=== PATIENT | female | born 1935 | race American Indian/Alaskan Native ===

== ENCOUNTER 2018-08-18 10:40 | Emergency (ER) | payer MEDICARE ==
[2018-08-18 11:00] VITALS: BP 169/98
--- NOTE | 2018-08-18 11:00 | Emergency Department Report ---
Blank Doc - Documentation Documentation: 82 y o old female presents with knee and ankle pain s/p trip and fall x3 days ago while at home coming down stairs ambulate ok xr ACC evaluate
--- NOTE | 2018-08-18 12:19 | XRay Report ---
RIGHT ANKLE, 3 views: History: right ankle pain. Mild osteopenia. There is an oblique nondisplaced fracture of the distal fibula. The distal tibia and talar dome are intact. Moderate to large plantar spur is identified. There is diffuse soft tissue swelling. IMPRESSION: Nondisplaced fracture of the distal fibula. Osteopenia. Soft tissue swelling.
--- NOTE | 2018-08-18 12:21 | XRay Report ---
RIGHT KNEE, 3 views: History: Pain. Mild osteopenia. Mild osteoarthritic changes are identified in all 3 compartments. No evidence for fracture or bone lesion. An osteochondral defect is suspected on the lateral femoral condyle which is best demonstrated on the lateral image. There is a large joint effusion extending to the suprapatellar bursa. IMPRESSION: Osteopenia. Degenerative changes. Possible osteochondral defect on the lateral femoral condyle. Large joint effusion. No acute injury is appreciated.
[2018-08-18] MEDS ORDERED: ULTRAM PO ONE (13:29)
--- NOTE | 2018-08-18 13:38 | Emergency Department Report ---
ED Extremity Problem HPI - General Chief complaint: Fall Stated complaint: DIABETIC/FELL (R) KNEE SWOLLEN Time Seen by Provider: 08/18/18 10:56 Source: patient Mode of arrival: Ambulatory Limitations: No Limitations - History of Present Illness Initial comments: Patient is a 82-year-old [place] female who fell 3 days ago and has some pain to the right lower extremity. Patient states was a trip and fall she did not lose consciousness during the fall she did not hit her head. Patient is complaining of some right knee right ankle pain. She has been able to bear weight but has had to use a walker for support. Patient states the pain is very minimal 3 out of 10 at best. Severity scale (0 -10): 0 - Related Data Previous Rx's Medication Instructions Recorded Last Taken Type Ibuprofen [Ibu] 400 mg PO Q4-6H PRN #20 tablet 08/18/18 Unknown Rx traMADol [Ultram] 50 mg PO Q6HR PRN #12 tablet 08/18/18 Unknown Rx Allergies Allergy/AdvReac Type Severity Reaction Status Date / Time No Known Allergies Allergy Unverified 08/18/18 10:41 ED Review of Systems ROS: Stated complaint: DIABETIC/FELL (R) KNEE SWOLLEN Other details as noted in HPI Comment: All other systems reviewed and negative ED Past Medical Hx - Past Medical History Hx Hypertension: Yes Hx Diabetes: Yes Hx of Cancer: Yes Additional medical history: high cholesterol, gout - Surgical History Hx Breast Surgery: Yes (left mastectomy) - Social History Smoking Status: Never Smoker Substance Use Type: None - Medications Home Medications: Home Medications Medication Instructions Recorded Confirmed Last Taken Type Ibuprofen [Ibu] 400 mg PO Q4-6H PRN #20 tablet 08/18/18 Unknown Rx traMADol [Ultram] 50 mg PO Q6HR PRN #12 tablet 08/18/18 Unknown Rx ED Physical Exam - General Limitations: No Limitations General appearance: alert, in no apparent distress - Head Head exam: Present: atraumatic, normocephalic - Eye Eye exam: Present: normal appearance - ENT ENT exam: Present: mucous membranes moist - Neck Neck exam: Present: normal inspection - Respiratory Respiratory exam: Present: normal lung sounds bilaterally. Absent: respiratory distress, wheezes, rales - Cardiovascular Cardiovascular Exam: Present: regular rate, normal rhythm. Absent: systolic murmur, diastolic murmur, rubs, gallop - GI/Abdominal GI/Abdominal exam: Present: soft, normal bowel sounds - Extremities Exam Extremities exam: Present: normal inspection, other (patient's right lower extremity shows some generalized swelling however she does have full range of motion. Patient of his right ankle does show some lateral tenderness but she does have full range of motion.) - Back Exam Back exam: Present: normal inspection - Neurological Exam Neurological exam: Present: alert, oriented X3 - Psychiatric Psychiatric exam: Present: normal affect, normal mood - Skin Skin exam: Present: warm, dry, intact, normal color. Absent: rash ED Course Vital Signs 08/18/18 10:56 Temperature 97.8 F Pulse Rate 101 H Respiratory 15 Rate Blood Pressure 169/98 O2 Sat by Pulse 98 Oximetry ED Medical Decision Making - Radiology Data X-ray of the right knee shows a large knee effusion. There is a lateral femoral condyle defect but no obvious fracture seen. X-ray of the right ankle shows nondisplaced distal fibular fracture. - Medical Decision Making The patient does show on x-ray and she does have a nondisplaced distal fibular fracture. Patient was placed in a posterior short leg splint with side stirrups for support. Her right knee was H wrapped. Patient is to be discharged home with follow Dr. Ireland with orthopedics. Patient given meds for symptomatic relief. Critical care attestation.: If time is entered above; I have spent that time in minutes in the direct care of this critically ill patient, excluding procedure time. ED Disposition Clinical Impression: Knee effusion, right Fracture, fibula closed, shaft Qualifiers: Encounter type: initial encounter Fracture morphology: oblique Fracture alignment: nondisplaced Laterality: right Qualified Code(s): S82.434A - Nondisplaced oblique fracture of shaft of right fibula, initial encounter for closed fracture Disposition: DC-01 TO HOME OR SELFCARE Is pt being admited?: No Does the pt Need Aspirin: No Condition: Stable Instructions: Knee Effusion (ED), Leg Fracture (ED) Referrals: KANE IRELAND MD [Staff Physician] - 3-5 Days Time of Disposition: 13:38
== END 2018-08-18 13:48 | disposition home or self-care (01) ==
LOC: ED 10:40
DX: S82.434A Nondisplaced oblique fracture of shaft of right fibula, initial encounter for closed fracture (principal); M25.461 Effusion, right knee; I10 Essential (primary) hypertension; E11.9 Type 2 diabetes mellitus without complications; M10.9 Gout, unspecified; E78.00 Pure hypercholesterolemia, unspecified; Z90.12 Acquired absence of left breast and nipple; W01.198A Fall on same level from slipping, tripping and stumbling with subsequent striking against other object, initial encounter; Y93.89 Activity, other specified; Y92.89 Other specified places as the place of occurrence of the external cause; Y99.8 Other external cause status